=== PATIENT | female | born 1990 | race Caucasian/White ===

== ENCOUNTER → 2020-05-07 17:32 | Outpatient (BNVA) | payer OTHER, SELFPAY | PROVIDERS: Family Provider Nurse Practitioner; PCP Nurse Practitioner; Visit Provider Nurse Practitioner Family | DX: N39.0 Urinary tract infection, site not specified (principal); R31.9 Hematuria, unspecified | CPT/HCPCS: 81000 ==

== ENCOUNTER → 2021-01-01 14:28 | Outpatient (BNVA) | payer OTHER, SELFPAY | PROVIDERS: Family Provider Nurse Practitioner; PCP Nurse Practitioner; Visit Provider Nurse Practitioner Women's Health | DX: Z01.419 Encounter for gynecological examination (general) (routine) without abnormal findings (principal); Z13.1 Encounter for screening for diabetes mellitus | CPT/HCPCS: 83036; 83520; 84146; 84443; 88175 ==

== ENCOUNTER → 2021-02-18 07:57 | Outpatient (BNVA) | payer OTHER, SELFPAY | PROVIDERS: Family Provider Nurse Practitioner; PCP Nurse Practitioner; Visit Provider Nurse Practitioner Women's Health | DX: N92.6 Irregular menstruation, unspecified (principal) | CPT/HCPCS: 81025 ==

== ENCOUNTER → 2021-04-13 15:27 | Outpatient (BNVA) | payer OTHER, SELFPAY | PROVIDERS: Family Provider Nurse Practitioner; Visit Provider Obstetrics & Gynecology | DX: Z34.01 Encounter for supervision of normal first pregnancy, first trimester (principal) | CPT/HCPCS: 80307; 82950; 84315; 84443; 85027; 86592; 86762; 86803; 86850; 86900; 87086; 87340; 87491; 87591; 87806 ==

== ENCOUNTER → 2021-04-14 16:41 | Outpatient (BNVA) | payer OTHER, SELFPAY | PROVIDERS: Family Provider Nurse Practitioner; Visit Provider Obstetrics & Gynecology | DX: O99.019 Anemia complicating pregnancy, unspecified trimester (principal) | CPT/HCPCS: 82607; 82728; 82746; 83550 ==

== ENCOUNTER → 2021-06-03 14:52 | Outpatient (BNVA) | payer OTHER, SELFPAY | PROVIDERS: Family Provider Nurse Practitioner; Visit Provider Obstetrics & Gynecology | DX: Z34.90 Encounter for supervision of normal pregnancy, unspecified, unspecified trimester (principal) | CPT/HCPCS: 82607; 82746; 84315; 85025 ==

== ENCOUNTER → 2021-07-27 08:58 | Outpatient (BNVA) | payer OTHER, SELFPAY | PROVIDERS: Family Provider Nurse Practitioner; Visit Provider Obstetrics & Gynecology | DX: Z34.90 Encounter for supervision of normal pregnancy, unspecified, unspecified trimester (principal) | CPT/HCPCS: 82950; 84315; 85027; 86850 ==

== ENCOUNTER → 2021-09-21 10:19 | Outpatient (BNVA) | payer OTHER, SELFPAY | PROVIDERS: Family Provider Nurse Practitioner; Visit Provider Obstetrics & Gynecology | DX: Z34.90 Encounter for supervision of normal pregnancy, unspecified, unspecified trimester (principal) | CPT/HCPCS: 84315; 85025; 87081 ==

== ENCOUNTER 2021-10-12 19:16 | Inpatient (IN) | payer OTHER, SELFPAY ==
--- NOTE | 2021-09-25 10:38 | ANES.PREANE2 ---
Pre-Anesthetic Assessment Height/Weight: Height 1.57 m epidural Familial anesthetic complications: none Social No alcohol and No tobacco Exam alert, oriented x 3, clear to auscultation bilaterally and regular rate & rhythm Airway Mallampati: Class II Dentition: full Pulmonary None reported CV/HEM None reported None reported Hepatic None reported GI Gastroesophageal Reflux Disease Metabolic None reported Musc/skel None reported Neuropsych None reported Anesthetic Plan ASA status: 2 Anesthesia: Regional (specify below) Risk of > 500 ml blood loss (7ml/kg in children): Yes, adequate IV access and fluids planned Medications/Allergies Home Medications Medication Instructions Recorded Confirmed Last Taken Type vitamins no.147-iron 1 tab PO DAILY 02/18/21 09/21/21 Unknown History gluconate 13 mg-folic acid 1 mg tablet omeprazole 20 mg capsule,delayed 20 mg PO DAILY 04/13/21 09/21/21 Unknown History release ferrous sulfate 324 mg (65 mg 324 mg PO DAILY 06/30/21 09/21/21 Unknown History iron) tablet,delayed release docusate sodium 100 mg capsule 200 mg PO DAILY cap 07/27/21 09/21/21 Unknown History (Colace) breast pump (Pump In Style #1 ea 08/12/21 09/21/21 Unknown Rx Advanced) Allergies Allergy/AdvReac Type Severity Reaction Status Date / Time No Known Allergies Allergy Verified 09/21/21 10:16 [facility] Anesthesia Medical History GERD (gastroesophageal reflux disease) Has had symptoms since 2018 and is on medication. No pertinent past medical history Denies diabetes, asthma, hypertension, seizures, DVT/PE PCP: None Surgical History No pertinent past surgical history Family History Mother Diabetes Type 2 DM-- at age 59 Thyroid disease Father Diabetes Type 1 DM Grandfather Hyperlipidemia maternal Grandmother Hyperlipidemia maternal Stroke maternal Denies family history of Colon cancer Ovarian cancer Heart disease Breast cancer Hypertension Uterine cancer Data Anesthesia Cardiac Studies: No Data to Display
[2021-10-12] VITALS (12 sets, daily range): BP systolic 97–142; BP diastolic 53–75; PULSE 68–90; RESP 16; BMI 44.4
[2021-10-12] MEDS: lactated ringers 1,000 ML 999 ML IV (20:00)
[2021-10-12 20:02] LABS: Basophils % 0.2 %; Eosinophils # 0.2 10^3/uL (0.0-0.8); Eosinophils % 1.3 %; Hematocrit 34.2 % (37.0-47.0); Hemoglobin 11.1 g/dL (11.5-15.3); Lymphocytes # 2.6 10^3/uL (0.8-4.8); Lymphocytes % 22.4 %; Mean Corpuscular HGB Conc 32.5 g/dL (30.0-36.0); Mean Corpuscular Hemoglobin 32.2 pg (28.0-34.0); Mean Corpuscular Volume 99.1 fl (81-99); Mean Platelet Volume 11.6 fL (7.4-10.4); Monocytes # 0.8 10^3/uL (0.2-0.9); Monocytes % 6.5 %; Neutrophils # 7.95 10^3/uL (1.8-7.7); Neutrophils % 69.2 %; Nucleated Red Blood Cells % 0 %; Platelet Count 220 10^3/cmm (130-400); Red Blood Count 3.45 10^6/uL (4.1-5.3); Red Cell Distribution Width 13.1 % (12.1-15.1); White Blood Count 11.5 10^3/uL (4.0-10.0)
[2021-10-12] MEDS: miSOPROStol 100 mcg tablet 25 MCG VAGINAL (22:01)
[2021-10-13] VITALS (78 sets, daily range): BP systolic 85–176; BP diastolic 49–123; PULSE 56–103; TEMP 36.9; O2SAT 91–99
[2021-10-13] MEDS: oxytocin 30 UNIT/500 ML BAG IV (04:53)
[2021-10-13] MEDS: lactated ringers 1,000 ML 125 ML IV (06:05)
--- NOTE | 2021-10-13 08:21 | P.HPUD_ITS ---
Labor & Delivery H&P Update Date of Procedure: October 13, 2021 Date H&P Performed: 10/12/21 H&P update information: I have reviewed H&P completed within last 30 days, I have examined patient prior to procedure, Changes to prior documentation as noted here and H&P is in [facility] EMR on date indicated Changes to previous documentation: Cervix is 1.5 cm, 100%-3 station. AROM perdormed---clear fluid. Admission Diagnosis:
[2021-10-13] MEDS: lactated ringers 1,000 ML 999 ML IV ×2 (09:00→11:31)
--- NOTE | 2021-10-13 09:23 | ANES.PAUD2 ---
Pre-Anesthetic Update Pre-Anesthetic Assessment: Date of Surgery/Procedure: 10/13/21 Any changes to Pre-Anesthetic Assessment?: No Labs Last 48hrs: Short CBC 10/12/21 Range/Units 19:45 WBC 11.5 H (4.0-10.0) 10^3/ uL Hgb 11.1 L (11.5-15.3) g/dL Hct 34.2 L (37.0-47.0) % MCV 99.1 H (81-99) fl Plt Count 220 (130-400) 10^3/c mm Neut % (Auto) 69.2 % Neut # (Auto) 7.95 H (1.8-7.7) 10^3/u L Vitals: Pulse Rate 74 10/13/21 09:11 Pulse Rhythm 10/13/21 08:00 Pulse Strength 3+ Normal 10/13/21 08:00 Respiratory Rate 16 10/12/21 22:05 Respiratory Effort Non-Labored 10/12/21 19:54 Respiratory Depth Normal 10/12/21 19:54 Respiratory Patter n 10/12/21 19:54 Blood Pressure 127/86 10/13/21 09:11 Oxygen Delivery Me thod 10/12/21 19:54 Exam: Pre-Anes Outpt Exam: alert, oriented x 3, clear to auscultation bilaterally and regular rate & rhythm Cardiac Studies: No Data to Display
--- NOTE | 2021-10-13 10:33 | ANES.PROC ---
Anesthesia Procedures Procedure/Date: 10/13/21 Epidural: Time Out Performed: Yes Consents Signed: Procedure Consent Consent: from patient Lumbar Level: L4-L5 Epidural position: sitting Epidural procedure: sterile prep of area, 1% lidocaine to numb the area, 18 g needle, neg for paresthesia, test dose given, 1.5% xylocaine 1:200k epi, 0.2% Ropivacaine bolus ml, placed PCEA, no systemic response, sterile dressing applied and 0.2% Ropiavacaine @ mls/hr (13) Additional Comments: Cap, mask donned by staff in room. Patient sat up. Patient prepped and draped in usual sterile fashion with Chlorprep. 1% lidocaine skin wheel. Tuohy inserted with stylet. Ligament engaged. Using KAI w/ saline technique epidural space found, catheter threaded. Negative aspiration. Test dose 1.5% lidocaine with epinephrine 1:200,000 total 3 cc. No response. Sterile dressing. Infusion started. Loss at? 7 , catheter at 14 . Tolerated well, 1 attempted, good block.?
[2021-10-13] MEDS: dextrose 5%-lactated ringers 1,000 ML 125 ML IV (15:41)
[2021-10-13] MEDS: ondansetron 2 mg/ML SDV 2 mL 4 MG IVP (21:11)
[2021-10-14] VITALS (15 sets, daily range): BP systolic 106–162; BP diastolic 59–98; PULSE 85–124; RESP 16; TEMP 36.5–37.9; O2SAT 96–97
[2021-10-14] MEDS: dextrose 5%-lactated ringers 1,000 ML 125 ML IV (00:07)
[2021-10-14] MEDS: miSOPROStol 200 mcg Tablet 800 MCG PR (00:08)
--- NOTE | 2021-10-14 00:18 | PM.DELIVERY ---
Delivery Note: Date of delivery: October 14, 2021 Pre-delivery diagnoses: iup@ 39w4d, induction of labor Post-delivery diagnoses: same- delivered Procedure: Delivering Physician: Juancarlos Estimated blood loss (mL): 100 Findings: term male in the KAREL presentation Pre-Delivery Course: The patient was admitted for induction of labor. She was started on pitocin. she had complete cervical dilation and began pushing. Delivery: The patient had complete cervical dilation and began to push. As the baby was , there was a deceleration to the 60's. The contraction stopped, but I had the patient continue to push until the head delivered in the KAREL position over an intact perineum under epidural anesthesia. The nose and mouth were bulb suctioned. The shoulders and body delivered atraumatically. The baby was placed onto the mother's abdomen. The baby needed some assistance with transition. The cord was clamped and cut. The baby was taken to the warmer for resuscitation. Cord blood was obtained. The placenta delivered spontaneously. It was inspected and found to be intact. The patient had some uterine atony after delivery. 800 mcg of cytotec was given rectally and a dose of TXA was given IV. Inspection of the perineum revealed no laceration and no repair was required. Estimated blood loss 100 mL. Apgars on baby were 7 at 1 minute and 9 at 5 minutes. Weight of baby is 7 pounds 13 ounces. Mother and baby were stable post delivery. History History History 1 Term 0 Miscarriages/Ectopic 0 0 Living Children Coding Level of Care Code Acute Career Development Counselor for g Jacobo
[2021-10-14] MEDS: benzocaine-menthol 78 gm Canister 1 SPRAY TOPICAL (01:30)
[2021-10-14] MEDS: lanolin oint 7 gm 1 APPLIC TOPICAL (01:30)
[2021-10-14] MEDS: ibuprofen 800 mg tablet PO ×3 (10:31→22:37)
[2021-10-14] MEDS: prenatal vitamin Capsule 1 CAP PO (10:31)
[2021-10-14] MEDS: docusate sodium 100 mg Capsule PO ×2 (10:32→16:43)
[2021-10-14 15:14] LABS: Hematocrit 27.4 % (37.0-47.0); Mean Corpuscular HGB Conc 32.8 g/dL (30.0-36.0); Mean Corpuscular Hemoglobin 31.8 pg (28.0-34.0); Mean Corpuscular Volume 96.8 fl (81-99); Mean Platelet Volume 11.7 fL (7.4-10.4); Platelet Count 184 10^3/cmm (130-400); Red Blood Count 2.83 10^6/uL (4.1-5.3); Red Cell Distribution Width 13.2 % (12.1-15.1); White Blood Count 16.2 10^3/uL (4.0-10.0)
--- NOTE | 2021-10-14 15:55 | P.PN_ITS ---
Vitals/I&O/Wt Last Vital Signs Temp 97.7 F 10/14/21 10:35 Pulse 105 H 10/14/21 10:35 Resp 16 10/14/21 10:35 BP 130/80 10/14/21 10:35 Pulse Ox 97 10/14/21 05:45 10/14/21 10/14/21 10/14/21 06:59 14:59 22:59 Intake Total 1602.083 / 4967.650 Output Total 700 / 1700 Balance 902.083 / 3267.650 Weight last 48 hrs Weight 243 lb Physical Exam Narrative: The patient is doing well this morning. No concerns Const: COMMON NORMALS: patient oriented x3, no limitations, healthy appearing, alert and well nourished GENERAL APPEARANCE: cooperative, comfortable, well kempt and well developed ORIENTATION/CONSCIOUSNESS: Yes awake, Yes oriented to person, Yes oriented to place and Yes oriented to time Resp: COMMON NORMALS: normal respiratory effort EFFORT & INSPECTION: Yes able to speak in complete sentences GI: COMMON NORMALS: Soft to palpation and non-tender PALPATION: Yes Soft to palpation Extremity: COMMON NORMALS: no calf tenderness Neuro: COMMON NORMALS: patient oriented x3 SENSORIUM/ORIENTATION: Yes alert, Yes oriented to person, Yes oriented to place and Yes oriented to time Psych: APPEARANCE: Yes well kempt Urinary Catheter Management: Aldridge: Cath Placed During This Visit: yes, but has since been removed by the nurse Reason for Continuing Indwelling Catheter: Decision to DC Catheter Urinary Catheter Date of Insertion: 10/13/21 Urinary Catheter Time of Insertion: 10:50 Date Urinary Catheter Removed: 10/13/21 Time Urinary Catheter Discontinued: 21:45 Data : 10/14/21 14:55 Attestations Medical Necessity Statement*: The patient had a vaginal delivery. She will be here two midnights Coding Level of Care Code Acute Assisted Living Coordinator for Juan Centeno
[2021-10-15 04:30] VITALS: BP 123/71; PULSE 75; O2SAT 96
--- NOTE | 2021-10-15 09:10 | P.DS_ITS ---
Discharge Providers BOX SEALING INSPECTOR Date of Admission: 10/13/21 10:11 Date of Discharge: 10/15/21 Attending Provider at Admission: Antionette Bauer MD Attending Provider at Discharge: Asa Bright MD Primary BOX SEALING INSPECTOR: Matthew Colvin MD Reason for Visit Reason for Visit: Induction Hospital Course Hospital Course 30Y/o female G 1 P0 with IUP at 39+3 weeks came to L&D for elective induction. She had an uneventful care, with risk factors of anemia during , obesity in , and tobacco use during . She had an adequate progression of labor and had a spontaneous vaginal delivery of viable term male 7/9 with weight 3530 gms. Her recovery observation was uneventful. She is Rh- and Rh-. Information Peripartum Data: Infant Delivery Method: Vaginal Physical Exam Narrative: GA; alert and oriented x 3 HEENT: normal Breasts: engorged Nipples - skin intact Lungs; clear to auscultation Heart: regular rhythm, no murmurs. Abd: Appropriately tender. BS+. Uterine fundus below umbilicus. No Fundal Tenderness. Perineum: normal lochia. Extremities: no edema, no cyanosis, no tenderness. Urinary Catheter Management: Aldridge: Cath Placed During This Visit: yes, but has since been removed by the nurse Reason for Continuing Indwelling Catheter: Decision to DC Catheter Urinary Catheter Date of Insertion: 10/13/21 Urinary Catheter Time of Insertion: 10:50 Date Urinary Catheter Removed: 10/13/21 Time Urinary Catheter Discontinued: 21:45 History History History 1 Term 0 Miscarriages/Ectopic 0 0 Living Children Discharge Data Studies Completed and Pending Laboratory Results WBC 16.2 10^3/uL (4.0-10.0) H 10/14/21 14:55 RBC 2.83 10^6/uL (4.1-5.3) L 10/14/21 14:55 Hgb 9.0 g/dL (11.5-15.3) L 10/14/21 14:55 Hct 27.4 % (37.0-47.0) L 10/14/21 14:55 MCV 96.8 fl (81-99) 10/14/21 14:55 MCH 31.8 pg (28.0-34.0) 10/14/21 14:55 MCHC 32.8 g/dL (30.0-36.0) 10/14/21 14:55 RDW 13.2 % (12.1-15.1) 10/14/21 14:55 Plt Count 184 10^3/cmm (130-400) 10/14/21 14:55 MPV 11.7 fL (7.4-10.4) H 10/14/21 14:55 Neut % (Auto) 69.2 % 10/12/21 19:45 Lymph % (Auto) 22.4 % 10/12/21 19:45 Dolores % (Auto) 6.5 % 10/12/21 19:45 Eos % (Auto) 1.3 % 10/12/21 19:45 Baso % (Auto) 0.2 % 10/12/21 19:45 Neut # (Auto) 7.95 10^3/uL (1.8-7.7) H 10/12/21 19:45 Lymph # (Auto) 2.6 10^3/uL (0.8-4.8) 10/12/21 19:45 Dolores # (Auto) 0.8 10^3/uL (0.2-0.9) 10/12/21 19:45 Eos # (Auto) 0.2 10^3/uL (0.0-0.8) 10/12/21 19:45 Baso # (Auto) 0.0 10^3/uL (0.0-0.1) 10/12/21 19:45 Nucleated RBC % (auto) 0 % 10/12/21 19:45 Nucleated RBCs # 0.0 /100WBC 10/12/21 19:45 Vitals Last Vital Signs Temp 97.9 F 10/14/21 22:00 Pulse 75 10/15/21 04:30 Resp 16 10/14/21 22:00 BP 123/71 10/15/21 04:30 Pulse Ox 96 10/15/21 04:30 Discharge Plan Discharge Patient Disposition: Home Condition: Stable Prescriptions: New acetaminophen 325 mg capsule 325 mg PO Q4H PRN (Reason: fever or post pain) Qty: 60 0RF ibuprofen 800 mg tablet 800 mg PO TID PRN (Reason: pain) Qty: 60 0RF Continued ferrous sulfate 324 mg (65 mg iron) tablet,delayed release (DR/EC) 324 mg PO DAILY 0RF (DME) breast pump [Pump In Style Advanced] Device See Rx Instructions .MEDSUPPLY Qty: 1 0RF Rx Instructions: As directed 147-iron gluc-folic 13 mg iron- 1 mg tablet 1 tab PO DAILY 0RF omeprazole 20 mg capsule,delayed release(DR/EC) 20 mg PO DAILY 0RF docusate sodium [Colace] 100 mg capsule 200 mg PO DAILY 0RF Discharge Orders: Discharge Order (Routine); Ordered 10/15/21 Ordered By: Asa Bright Referrals: Matthew Colvin MD [Physician] - 6 Weeks Discharge Diet: Usual diet Discharge Activity: Limit activity as instructed Patient Instructions: Depression (DC), Bleeding (DC), Preeclampsia and Eclampsia After Delivery (GEN), OB Discharge Report, OB Food/Drug Interaction Guide, OB Care at Home, Opioid Safety, OB Postp artum Home Care, OB Vaginal Deliveries - [facility], Abnormal Bleeding Activity Restrictions/Additional Instructions: 1. Please call [facility] clinic on next working day to make your post appointment in 6 weeks. 2. Please stay home until you come back to the clinic on first post-operative check up. 3. Please follow instructions on your medications CAREFULLY. 4. If you have abdominal incision, do not cover it unless dressing is necessary because of drainage. OK to shower, but avoid bath. Leave steri-strips until they fall off. If they are still on one week after surgery, you may remove them. 5. If you had vaginal surgery or vaginal repair, Dr. Bright may instruct you to take SITZ bath. 6. Yellow, blood tinged odorous vaginal discharge is usually normal after hysterectomy or vaginal surgeries. 7. No sexual intercourse, tampons, or douches until you are completely released from the post-operative care. 8. Avoid constipation by eating right and maybe using some Metamucil or Milk of Magnesia. 9. All prescription refills are given during the working hours. Please do no wait till it runs out. Call the clinic at [phone] before your medication runs out. The clinic will get in touch with your doctor to prescribe medications if necessary. 10. Please remain within 40 mile radius from our hospital because emergencies do happen now and then during the post-operative period. 11. If you have stairs at home, take one step at a time slowly and minimize the number of trips. It helps to stay in one floor for the next few days. No lifting except what you can lift by one hand until you are released from the post-operative care. 12. Driving is discouraged until you are well healed. It may be 3-4 weeks b efore you feel strong enough to drive. You should be able to turn and look through the rear window without pain and you should be able to push the brake pedal very hard without pain before you drive. No fast rules, but SAFETY should be your primary concern. DO NOT drive if you are on sedating medications such as narcotics. 13. Call the clinic (during working hours) to make urgent appointment or go to the Emergency room, if any of the following occurs: i. Vaginal bleeding becomes heavy, more than a period. ii. Incision becomes red and sore, or drains pus. iii. Your temperature is over 100.4 or you have chill. iv. IV site becomes red and swollen (a little ``knot?? is usually OK) v. Persistent nausea and vomiting vi. Persistent constipation or diarrhea vii. Rash or allergic reaction to medications. Discharge Attestations BOX SEALING INSPECTOR Time Spent in Discharge Care*: greater than 30 min Coding Level of Care Code Acute Clamshell Operator for Juan Centeno
[2021-10-15] MEDS: ibuprofen 800 mg tablet PO (09:48)
[2021-10-15] MEDS: docusate sodium 100 mg Capsule PO (09:48)
[2021-10-15] MEDS: prenatal vitamin Capsule 1 CAP PO (09:48)
[2021-10-15 11:31] VITALS: BP 102/69; PULSE 98; RESP 15; TEMP 36.8; O2SAT 98
--- NOTE | 2021-10-15 14:58 | ANE.PACU2 ---
Inpatient post-anesthesia follow up: Airway intact: Yes Vital signs: Temperature 98.2 F Pulse Rate 98 Respiratory Rate 15 Blood Pressure 102/69 Pulse Oximetry 98 Oxygen Delivery Me thod Room Air Oxygen Flow Rate Fraction of Inspir ed Oxygen Hydration adequate: Yes Nausea and vomiting: No Pain level: 1 Mental status: Baseline Additional Comments: EMR review
== END 2021-10-15 11:00 | disposition home or self-care (01) | DRG 806 ==
PROVIDERS: Admitting Provider Obstetrics & Gynecology; Visit Provider Obstetrics & Gynecology
DX: O99.214 Obesity complicating childbirth (principal); O36.0930 Maternal care for other rhesus isoimmunization, third trimester, not applicable or unspecified; Z37.0 Single live birth; O99.02 Anemia complicating childbirth; D64.9 Anemia, unspecified; O76 Abnormality in fetal heart rate and rhythm complicating labor and delivery; O99.334 Smoking (tobacco) complicating childbirth; F17.290 Nicotine dependence, other tobacco product, uncomplicated; Z3A.39 39 weeks gestation of pregnancy
CPT/HCPCS: 36415; 51702; 59025; 59409; 84315; 85025; 85027; G0378; G0379; J2405; J2795

== ENCOUNTER 2022-11-03 11:56 | Emergency (ER) | payer OTHER, SELFPAY ==
[2022-11-03 12:01] VITALS: BP 130/78; PULSE 74; RESP 18; TEMP 36.7; O2SAT 99
--- NOTE | 2022-11-03 12:16 | ED_ITS ---
HPI - General Adult General: Chief complaint: General Medical Stated complaint: Needle stick Time Seen by Provider: 11/03/22 12:06 Source: patient Mode of arrival: ambulatory Limitations: no limitations History of Present Illness: Patient is a 31-year-old female/[employer] employee here for a Worker's Comp. injury. Patient states she was throwing a bottle away in the sharps container when she felt like she possibly got pinched by the lid but then questioned that maybe she got poked by an exposed needle. Injury happened to the palmar aspect of her left hand. She states she did initially noticed a small amount of bleeding that has subsided. Tetanus up-to-date. Patient has a completed hepatitis B series. Onset (ago): hour(s) Location: left and upper extremity Associated symptoms: Reports no associated symptoms Treatments prior to arrival: other (hand washing) Review of Systems General: Reports: 10 or more systems reviewed and unremarkable except in HPI and below PFSH ED PFSH: Medical History GERD (gastroesophageal reflux disease) Has had symptoms since 2018 and is on medication. No pertinent past medical history Denies diabetes, asthma, hypertension, seizures, DVT/PE PCP: None Surgical History No pertinent past surgical history Family History Mother Diabetes Type 2 DM-- at age 59 Thyroid disease Father Diabetes Type 1 DM Grandfather Hyperlipidemia maternal Grandmother Hyperlipidemia maternal Stroke maternal Denies family history of Colon cancer Ovarian cancer Heart disease Breast cancer Hypertension Uterine cancer Social History Substance/Drug Use: never Physical Exam Const: COMMON NORMALS: no acute distress, no limitations, alert and well nourished Extremity: COMMON NORMALS: normal to inspection GENERAL: Yes normal exam except as noted Neuro: SENSORIUM/ORIENTATION: Yes alert Skin: NARRATIVE SKIN EXAM: no visualized wounds noted Course Vital Signs: Vital signs: Vital Signs Temperature 98.0 F 11/03/22 12:01 Pulse Rate 74 11/03/22 12:01 Respiratory Rate 18 11/03/22 12:01 Blood Pressure 130/78 11/03/22 12:01 Pulse Oximetry 99 11/03/22 12:01 Oxygen Delivery Me thod Room Air 11/03/22 12:01 MDM - General Adult Medical Decision Making Patient will be treated as a potential needlestick exposure as this certainly is possible given the history. Her tetanus is up-to-date. She has a completed hepatitis B vaccination series. Discussed how there is no PEP for hepatitis C. Did discuss the options for PEP for HIV however she declines. She will have employee exposure labs drawn prior to discharge and will follow up with workers comp. Discharge Plan Discharge Patient Disposition: Home Clinical Impression: Accidental needlestick injury with exposure to body fluid Condition: Stable Prescriptions: No Action 147-iron gluc-folic 13 mg iron- 1 mg tablet 1 tab PO DAILY Discharge Orders: Discharge ED (Routine); Ordered 11/03/22 Ordered By: Ursula Patterson Activity Restrictions/Additional Instructions: Please follow-up with Worker's Comp. as directed. Coding Level of Care Code ED Watershed Coordinator for Juan Centeno
[2022-11-03 13:31] LABS: HIV 1 & 2 Antibody Non-Reactive (Non-Reactiv); HIV 1 & 2 Antigen Non-Reactive (Non-Reactiv)
[2022-11-03 13:33] LABS: Hepatitis B Surface AB 25.2 (11.5-1000); Hepatitis B Surface Antigen Non-Reactive (Nonreactive); Hepatitis C Virus Antibody Non-Reactive (Nonreactive)
== END 2022-11-03 12:53 | disposition home or self-care (01) ==
PROVIDERS: Emergency Provider Physician Assistant
DX: Z77.21 Contact with and (suspected) exposure to potentially hazardous body fluids (principal); W46.0XXA Contact with hypodermic needle, initial encounter; Y99.0 Civilian activity done for income or pay
CPT/HCPCS: 36415; 86706; 86803; 87340; 87806; 99283

== ENCOUNTER → 2022-11-05 13:00 | Outpatient (BNVA) | payer OTHER, SELFPAY | PROVIDERS: Visit Provider Nurse Practitioner Women's Health | DX: Z32.00 Encounter for pregnancy test, result unknown (principal) | CPT/HCPCS: 84702 ==

== ENCOUNTER → 2022-12-01 11:55 | Outpatient (BNVA) | payer OTHER, SELFPAY | PROVIDERS: Visit Provider Nurse Practitioner Women's Health | DX: Z34.90 Encounter for supervision of normal pregnancy, unspecified, unspecified trimester (principal) | CPT/HCPCS: 76801 ==

== ENCOUNTER → 2022-12-06 13:18 | Outpatient (BNVA) | payer OTHER, SELFPAY | PROVIDERS: Visit Provider Obstetrics & Gynecology | DX: Z34.80 Encounter for supervision of other normal pregnancy, unspecified trimester (principal) | CPT/HCPCS: 76801; 80307; 83036; 84315; 85027; 86592; 86762; 86850; 86900; 87086 ==

== ENCOUNTER → 2022-12-20 09:43 | Outpatient (BNVA) | payer OTHER, SELFPAY | PROVIDERS: Visit Provider Obstetrics & Gynecology | DX: Z34.90 Encounter for supervision of normal pregnancy, unspecified, unspecified trimester (principal); Z34.80 Encounter for supervision of other normal pregnancy, unspecified trimester; O99.210 Obesity complicating pregnancy, unspecified trimester | CPT/HCPCS: 82950; 84315; 87491; 87591 ==

== ENCOUNTER → 2023-01-13 08:35 | Outpatient (BNVA) | payer OTHER, SELFPAY | PROVIDERS: Visit Provider Nurse Practitioner Women's Health | DX: O99.810 Abnormal glucose complicating pregnancy (principal); Z3A.00 Weeks of gestation of pregnancy not specified | CPT/HCPCS: 82951; 82952 ==

== ENCOUNTER → 2023-02-09 14:18 | Outpatient (BNVA) | payer OTHER, SELFPAY | PROVIDERS: Visit Provider Nurse Practitioner Women's Health | DX: O36.60X0 Maternal care for excessive fetal growth, unspecified trimester, not applicable or unspecified (principal); Z3A.20 20 weeks gestation of pregnancy | CPT/HCPCS: 76805 ==

== ENCOUNTER → 2023-03-09 07:55 | Outpatient (BNVA) | payer OTHER, SELFPAY | PROVIDERS: Visit Provider Nurse Practitioner Women's Health | DX: Z34.80 Encounter for supervision of other normal pregnancy, unspecified trimester (principal) | CPT/HCPCS: 82951; 82952 ==

== ENCOUNTER → 2023-03-10 08:45 | Outpatient (BNVA) | payer OTHER, SELFPAY | PROVIDERS: Visit Provider Obstetrics & Gynecology | DX: O36.62X0 Maternal care for excessive fetal growth, second trimester, not applicable or unspecified (principal); Z3A.25 25 weeks gestation of pregnancy | CPT/HCPCS: 76816; 84315 ==

== ENCOUNTER → 2023-04-07 08:41 | Outpatient (BNVA) | payer OTHER, SELFPAY | PROVIDERS: Visit Provider Obstetrics & Gynecology | DX: Z34.80 Encounter for supervision of other normal pregnancy, unspecified trimester (principal) | CPT/HCPCS: 76816; 81000; 85025; 86850 ==

== ENCOUNTER → 2023-05-05 08:39 | Outpatient (BNVA) | payer OTHER, SELFPAY | PROVIDERS: Visit Provider Obstetrics & Gynecology | DX: Z34.80 Encounter for supervision of other normal pregnancy, unspecified trimester (principal) | CPT/HCPCS: 76816; 84315 ==

== ENCOUNTER → 2023-05-19 09:46 | Outpatient (BNVA) | payer OTHER, SELFPAY | PROVIDERS: Visit Provider Nurse Practitioner Women's Health | DX: Z34.80 Encounter for supervision of other normal pregnancy, unspecified trimester (principal) | CPT/HCPCS: 84315; 85025 ==

== ENCOUNTER 2023-05-23 08:12 | Outpatient (CLI) | payer OTHER, SELFPAY ==
[2023-05-23] VITALS (11 sets, daily range): BP systolic 116–139; BP diastolic 61–81; PULSE 83–106; RESP 17; BMI 45.1
[2023-05-23 08:47] LABS: Add Urine Culture? No; Bacteria Urine 2+ /hpf; Bilirubin Urine 1+ (Negative); Blood Urine Neg (Negative); Glucose Urine UA Norm (Normal); Ketones Urine 2+ (Negative); Leukocyte Esterase Urine Trace (Negative); Mucus Urine 2+ /hpf; Nitrate Urine Negative (Negative); Protein Urine 1+ (Negative); RBC Urine 0-4 /hpf (0-2); Specific Gravity, Urine 1.025 (1.005-1.030); Squamous Epithelial Cell Urine 15-25 /hpf (0-5); Urine Appearance Cloudy (CLEAR); Urine Color Yellow (Yellow); Urobilinogen Urine Neg (Negative); pH Urine 5 (5-7)
[2023-05-23] MEDS: promethazine 25 mg/mL SDV 1 mL IM (09:10)
[2023-05-23] MEDS: lactated ringers 1,000 ML 999 ML IV ×2 (09:11→10:08)
[2023-05-23] MEDS: ondansetron 2 mg/ML SDV 2 mL 4 MG IVP (10:08)
[2023-05-23] MEDS: NIFEdipine 10 mg Capsule 30 MG PO (10:35)
[2023-05-23 10:57] LABS: Basophils % 0.1 %; Eosinophils % 0.2 %; Hematocrit 37.4 % (36-47); Lymphocytes # 2.3 10^3/uL (0.8-4.8); Lymphocytes % 14.6 %; Mean Corpuscular HGB Conc 32.9 g/dL (30-55); Mean Corpuscular Hemoglobin 32.1 pg (27-33); Mean Corpuscular Volume 97.7 fl (85-98); Mean Platelet Volume 11.1 fL (7.4-10.4); Monocytes # 0.7 10^3/uL (0.2-0.9); Monocytes % 4.2 %; Neutrophils # 12.83 10^3/uL (1.8-7.7); Neutrophils % 80.3 %; Nucleated Red Blood Cells % 0 %; Platelet Count 197 10^3/cmm (157-399); Red Blood Count 3.83 10^6/uL (3.85-5.65); Red Cell Distribution Width 13.3 % (12.1-15.1); White Blood Count 15.97 10^3/uL (3.29-11.43)
[2023-05-23 11:20] LABS: Alanine Aminotransferase 10 U/L (0-33); Albumin Level 2.9 g/dL (3.5-5.2); Alkaline Phosphatase 85 U/L (35-105); Blood Urea Nitrogen 4 mg/dL (6-20); Calcium 8.2 mg/dL (8.5-10.5); Carbon Dioxide 21 mmol/L (22-29); Chloride 102 mmol/L (98-107); Globulin 3.1 g/dL (1.3-4.6); Glomerular Filtration Rate 182.7 mL/min (90-130); Glucose 87 mg/dL (65-115); Osmolality Calculated 278 mOsm/kg (285-295); Sodium 136 mmol/L (136-145); Total Bilirubin 0.2 mg/dL (0.15-1.2); Uric Acid 5.1 mg/dL (2.4-5.7)
[2023-05-23 11:26] LABS: Anion Gap 16.4 (5-19); Aspartate Amino Transferase 19 U/L (0-32); Potassium 3.4 mmol/L (3.5-5.1)
[2023-05-23 11:28] LABS: Slide Review Slide Review Perform
[2023-05-23 11:33] LABS: Urine Creatinine 286 mg/dL (28-217)
[2023-05-23 11:34] LABS: UPRO/UCREAT Ratio 0.22 mg/mg CR; Urine Protein Random 62 mg/dL
== END 2023-05-23 11:50 | disposition home or self-care (01) ==
LOC: OPOB 08:13 → OBGYN 08:45
PROVIDERS: Visit Provider Obstetrics & Gynecology
DX: O21.9 Vomiting of pregnancy, unspecified (principal); Z3A.00 Weeks of gestation of pregnancy not specified
CPT/HCPCS: 36415; 59025; 80053; 81001; 82570; 84156; 84550; 85025; 96372; 96374; 99211; J2405; J2550; J7120

== ENCOUNTER → 2023-06-02 07:49 | Outpatient (BNVA) | payer OTHER, SELFPAY | PROVIDERS: Visit Provider Obstetrics & Gynecology | DX: Z34.80 Encounter for supervision of other normal pregnancy, unspecified trimester (principal) | CPT/HCPCS: 76816; 84315; 87081 ==

== ENCOUNTER → 2023-06-09 08:35 | Outpatient (BNVA) | payer OTHER, SELFPAY | PROVIDERS: Visit Provider Obstetrics & Gynecology | DX: Z34.80 Encounter for supervision of other normal pregnancy, unspecified trimester (principal) | CPT/HCPCS: 80053; 82570; 84156; 84315; 84550; 85025 ==

== ENCOUNTER 2023-06-27 10:18 | Inpatient (IN) | payer OTHER, SELFPAY ==
[2023-06-27] VITALS (63 sets, daily range): BP systolic 104–167; BP diastolic 53–99; PULSE 80–157; RESP 16; TEMP 36.4; O2SAT 98; BMI 45.7
[2023-06-27 10:36] LABS: Basophils % 0.2 %; Eosinophils # 0.1 10^3/uL (0.0-0.8); Eosinophils % 0.8 %; Hematocrit 36.1 % (36-47); Lymphocytes # 2.4 10^3/uL (0.8-4.8); Lymphocytes % 19.5 %; Mean Corpuscular HGB Conc 33.2 g/dL (30-55); Mean Corpuscular Volume 96.3 fl (85-98); Mean Platelet Volume 11.9 fL (7.4-10.4); Monocytes # 0.9 10^3/uL (0.2-0.9); Monocytes % 7.4 %; Neutrophils # 8.88 10^3/uL (1.8-7.7); Neutrophils % 71.7 %; Nucleated Red Blood Cells % 0 %; Platelet Count 207 10^3/cmm (157-399); Red Blood Count 3.75 10^6/uL (3.85-5.65); Red Cell Distribution Width 14.1 % (12.1-15.1); White Blood Count 12.38 10^3/uL (3.29-11.43)
[2023-06-27] MEDS: ROPivacaine syringe 100 MG/50 ML SYRINGE 10 MG EPIDURAL ×3 (11:07→17:59)
--- NOTE | 2023-06-27 11:13 | P.ANESASSM_ITS ---
Pre-Anesthetic Assessment Height/Weight: Height 1.57 m Weight 113.398 kg Pulse Resp BP Pulse Ox O2 Del Method 118 H 16 147/77 98 Room Air 06/27/23 11:10 06/27/23 10:16 06/27/23 11:10 06/27/23 11:00 06/27/23 10:17 Epidural Familial anesthetic complications: None Was Beta Renard taken within 24 hours: N/A Was Clonidine taken within 24 hours: N/A Last intake: > 8 hrs Social No alcohol and No tobacco Exam alert, oriented x 3, clear to auscultation bilaterally and regular rate & rhythm Airway Mallampati: Class III Dentition: full GI Gastroesophageal Reflux Disease Metabolic Morbid Obesity Anesthetic Plan ASA status: 3 Anesthesia: Regional (specify below) Other: Epidural Risk of > 500 ml blood loss (7ml/kg in children): Yes, adequate IV access and fluids planned Medications/Allergies Home Medications Medication Instructions Recorded Confirmed Last Taken Type vitamins no.147-iron 1 tab PO DAILY 02/18/21 06/27/23 10/12/21 07:00 History gluconate 13 mg-folic acid 1 mg tablet omeprazole 20 mg capsule,delayed 20 mg PO DAILY 02/17/23 06/27/23 Unknown History release ferrous sulfate 325 mg (65 mg 325 mg PO DAILY 90 days #90 tabs 04/21/23 06/27/23 Unknown Rx iron) tablet,delayed release Allergies Allergy/AdvReac Type Severity Reaction Status Date / Time No Known Allergies Allergy Verified 06/23/23 07:53 [facility] Anesthesia Medical History GERD (gastroesophageal reflux disease) Has had symptoms since 2018 and is on medication. No pertinent past medical history Denies diabetes, asthma, hypertension, seizures, DVT/PE PCP: None Surgical History No pertinent past surgical history Family History Mother Diabetes Type 2 DM-- at age 59 Thyroid disease Father Diabetes Type 1 DM Grandfather Hyperlipidemia maternal Grandmother Hyperlipidemia maternal Stroke maternal Denies family history of Colon cancer Ovarian cancer Heart disease Breast cancer Hypertension Uterine cancer Female Reproductive History : 2 Data Anesthesia 06/27/23 10:24 Short CBC 06/27/23 Range/Units 10:24 WBC 12.38 H (3.29-11.43) 10^3/uL Hgb 12.00 (11.27-16.99) g/dL Hct 36.1 (36-47) % MCV 96.3 (85-98) fl Plt Count 207 (157-399) 10^3/cmm Neut % (Auto) 71.7 % Neut # (Auto) 8.88 H (1.8-7.7) 10^3/uL Cardiac Studies: 2 No Data to Display
--- NOTE | 2023-06-27 11:16 | ANES.PROC ---
Anesthesia Procedures Procedure/Date: 06/27/23 Epidural: Time Out Performed: Yes Consents Signed: Procedure Consent and NPO Consent Consent: requested by attending/covering physician, from patient, from other, risks and benefits reviewed, patient agrees to proceed and emergency procedure Lumbar Level: L3-L4 Epidural position: sitting Epidural procedure: sterile prep of area, 1% lidocaine to numb the area, 18 g needle, negative for paresthesia passed, neg for paresthesia, test dose given, 1.5% xylocaine 1:200k epi (5), 0.2% Ropivacaine bolus ml (5), placed PCEA, no systemic response, sterile dressing applied, L.U.D. no apparent complications and 0.2% Ropiavacaine @ mls/hr (10) Additional Comments: KAI at 6.5 cm, threaded to 12 cm. Patient reported significant improvement in subsequent contraction and onset of mild numbness in legs.
[2023-06-27] MEDS: dextrose 5%-lactated ringers 1,000 ML 125 ML IV (11:28)
--- NOTE | 2023-06-27 11:35 | PM.OBGYHP ---
Providers/Chief Complaint Admitting Physician: Ja Bean MD Primary GEOSPATIAL SYSTEMS INTEGRATOR: Asa Bright MD Chief Complaint: contraction 5 min apart HPI GEOSPATIAL SYSTEMS INTEGRATOR History of Present Illness 32 y.o. EDC June 29, 2023 At 39 w 5 d Presented to L&D with [facility] No bleeding, fluid leakage Present Details : 2 Para: 1 Labs Rubella: Immune RPR: Negative GBS: Negative Medications/Allergies Home Medications Medication Instructions Recorded Confirmed Last Taken Type vitamins no.147-iron 1 tab PO DAILY 02/18/21 06/27/23 10/12/21 07:00 History gluconate 13 mg-folic acid 1 mg tablet omeprazole 20 mg capsule,delayed 20 mg PO DAILY 02/17/23 06/27/23 Unknown History release ferrous sulfate 325 mg (65 mg 325 mg PO DAILY 90 days #90 tabs 04/21/23 06/27/23 Unknown Rx iron) tablet,delayed release Allergies Allergy/AdvReac Type Severity Reaction Status Date / Time No Known Allergies Allergy Verified 06/23/23 07:53 PFSH GEOSPATIAL SYSTEMS INTEGRATOR PFSH: Medical History GERD (gastroesophageal reflux disease) Has had symptoms since 2018 and is on medication. No pertinent past medical history Denies diabetes, asthma, hypertension, seizures, DVT/PE PCP: None Surgical History No pertinent past surgical history Family History Mother Diabetes Type 2 DM-- at age 59 Thyroid disease Father Diabetes Type 1 DM Grandfather Hyperlipidemia maternal Grandmother Hyperlipidemia maternal Stroke maternal Denies family history of Colon cancer Ovarian cancer Heart disease Breast cancer Hypertension Uterine cancer History History History 2 Term 1 0 Miscarriages/Ectopic 0 Living Children 1 Care LOUISE Calculator Estimated Delivery Date Method Current WG Current Estimate 06/29/23 LMP (Certain) 39w 6d Other Estimates 06/28/23 Ultrasound #1 40w 0d 06/21/23 Ultrasound #2 41w 0d Specific Issues/Plans OBESITY RH NEGATIVE--needs RhoGam at 28 weeks -- given on 04/07/2023 ABNORMAL GLUCOSE at 12 wks-- 3 hour GTT ; 1 level abnormal at 24 weeks; no further f/u Vitals/I&O/Wt Last Vital Signs Temp 97.5 F L 06/27/23 18:11 Pulse 104 H 06/28/23 00:26 Resp 16 06/27/23 11:07 BP 143/74 06/28/23 00:26 Pulse Ox 98 06/27/23 11:00 O2 Del Method Room Air 06/27/23 11:00 06/27/23 06/27/23 06/28/23 14:59 22:59 06:59 Intake Total 50 / 50 1054.601 / 1104.601 Output Total 450 / 450 Balance 50 / 50 604.601 / 654.601 Weight last 48 hrs Weight 250 lb Physical Exam Narrative: Weight 250 lbs; VS normal Awake, alert HEENT: normal Lungs: clear Cor: RRR Abd: nontender Cervix: 9 cm / 100 % / high station / BBOW Bedside sono: cephalic presentation Ext: no edema External monitor: heart tracing good variability, + accelerations Urinary Catheter Management: Aldridge: Cath Placed During This Visit: yes Reason for Continuing Indwelling Catheter: Other Urinary Catheter Date of Insertion: 06/27/23 Urinary Catheter Time of Insertion: 12:00 Aldridge Latex: Cath Placed During This Visit: yes, but has since been removed by the nurse Reason for Continuing Indwelling Catheter: Decision to DC Catheter Urinary Catheter Date of Insertion: 06/27/23 Urinary Catheter Time of Insertion: 19:45 Date Urinary Catheter Removed: 06/27/23 Time Urinary Catheter Discontinued: 22:05 Data 06/27/23 10:24 Results Labs OB ([facility]): Obstetrics US 06/02/23 Blood Type O Negative 06/27/23 Antibody Screen Negative 06/27/23 Hct 36.1 % (36-47) 06/27/23 Hgb 12.00 g/dL (11.27-16.99) 06/27/23 Rho(D) Type Negative 06/27/23 Plt Count 207 10^3/cmm (157-399) 06/27/23 Hep Bs Antigen Non-reactive (Nonreactive) 11/03/22 Hep Bs Antibody 25.2 (11.5-1000) 11/03/22 Hepatitis C Antibody Non-reactive (Nonreactive) 11/03/22 Rubella IgG Antibody 78.5 IU/mL (0.0-10.0) H 12/06/22 RPR Nonreactive (Nonreactive) 12/06/22 HIV 1&2 Ab & HIV 1 Ag Non-reactive (Non-Reactiv) 11/03/22 TSH 1.37 uIU/mL (0.27-4.20) 04/13/21 C.trachomatis RNA (TMA) Not detected (NOT DETECTED) 12/20/22 N.gonorrhoeae RNA (TMA) Not detected (NOT DETECTED) 12/20/22 T. vaginalis Amp RNA Not detected (NOT DETECTED) 12/20/22 Chlamydia/GC Comment See note 12/20/22 Gest Glucose Tolerance mg/dL 03/09/23 Hemoglobin A1c 5.4 % (4.0-6.0) 12/06/22 Uric Acid 4.3 mg/dL (2.4-5.7) 06/09/23 Ser , Semi-Qnt 89116.00 mIU/mL 11/05/22 HCG, Qual Positive (Negative) H 02/18/21 Urine Opiates Screen Negative ng/mL (Negative) 12/06/22 Ur Barbiturates Screen Negative ng/mL (Negative) 12/06/22 Ur Phencyclidine Scrn Negative ng/mL (Negative) 12/06/22 Ur Amphetamines Screen Negative ng/mL (Negative) 12/06/22 U Benzodiazepines Scrn Negative ng/mL (Negative) 12/06/22 Urine Cocaine Screen Negative ng/mL (Negative) 12/06/22 U Marijuana (THC) Screen Negative ng/mL (Negative) 12/06/22 Micro Urine Specimen 12/06/22 Pap Smear Interpret See note 01/01/21 Prolactin 9.33 ng/mL (4.8-23.3) 01/01/21 OB Labs GBS negative A&P Assessment and plan (1) Supervision of other normal : 39 w 5 d Active labor Fetus reassuring Plan admit Patient requests epidural Attestations Medical Necessity Statement*: patient at 39 w 5 d, with active labor Coding Level of Care Code Acute Code for Chg Fwd Diagnoses Supervision of other normal Z34.80 Time Spent (min) 30
--- NOTE | 2023-06-27 15:30 | PM.MISC ---
Miscellaneous Note Purpose of Documentation: pain Note: Called for return of R-sided discomfort after pump was paused. Bolused w/ bupivicaine 0.25% 10 cc with good effect
--- NOTE | 2023-06-27 15:30 | PC.NURSE ---
Pt reports right sided pain 8/10, left side numb. Position changed from right lateral to high fowlers per patient request. Dr. Snell to bedside to assess epidural. Pt given bolus by anesthesia provider.
[2023-06-27] MEDS: oxytocin 30 UNIT/500 ML BAG IV (17:17)
[2023-06-27] MEDS: dextrose 5%-lactated ringers 1,000 ML 120 ML IV (19:41)
--- NOTE | 2023-06-27 22:50 | PM.DELIVERY ---
Delivery Note: Date of delivery: June 27, 2023 Pre-delivery diagnoses: 39 w 5 d active labor Post-delivery diagnoses: same Procedure: vaginal delivery repair of second-degree perineal laceration Op report anesthesia: Epidural Delivering Physician: Ja Bean MD Estimated blood loss (mL): 400 Findings: , vigorous male Normal placenta and cord Cord gases and blood obtained Small second-degree perineal laceration repaired EBL: 400 cc No complications Pre-Delivery Course: patient admitted at cervix 9 cm / high station progressed with pitocin augmentation delivered vaginally without any complications Delivery: vaginal delivery Post-Delivery Status: good History History History 2 Term 1 0 Miscarriages/Ectopic 0 Living Children 1 A&P Assessment and plan (1) Vaginal delivery: care Coding Level of Care Code Acute Code for Chg Fwd Diagnoses Vaginal delivery O80 Time Spent (min) 60
[2023-06-28] VITALS (12 sets, daily range): BP systolic 105–149; BP diastolic 67–84; PULSE 78–123; RESP 16–17; TEMP 36.4–36.7; O2SAT 99
[2023-06-28] MEDS: HYDROcodone-acetaminophen 5-325 mg Tablet PO ×2 (00:39→10:04)
[2023-06-28] MEDS: benzocaine-menthol 78 gm Canister 1 SPRAY TOPICAL (00:47)
--- NOTE | 2023-06-28 01:54 | PC.NURSE ---
catheter intact, catheter partially pulled out of site before removal
[2023-06-28] MEDS: ibuprofen 800 mg tablet PO ×2 (08:50→16:03)
[2023-06-28] MEDS: docusate sodium 100 mg Capsule PO (08:50)
[2023-06-28] MEDS: prenatal vitamin Capsule 1 CAP PO (08:50)
[2023-06-28 12:00] LABS: Hematocrit 31.5 % (36-47); Mean Corpuscular HGB Conc 32.7 g/dL (30-55); Mean Corpuscular Hemoglobin 31.8 pg (27-33); Mean Corpuscular Volume 97.2 fl (85-98); Mean Platelet Volume 11.5 fL (7.4-10.4); Platelet Count 190 10^3/cmm (157-399); Red Blood Count 3.24 10^6/uL (3.85-5.65); Red Cell Distribution Width 14.1 % (12.1-15.1); White Blood Count 17.15 10^3/uL (3.29-11.43)
--- NOTE | 2023-06-28 14:04 | ANE.PACU2 ---
Inpatient post-anesthesia follow up: Airway intact: Yes Vital signs: Temperature 97.5 F Pulse Rate 101 Respiratory Rate 16 Blood Pressure 145/81 Pulse Oximetry 98 Oxygen Delivery Me thod Room Air Oxygen Flow Rate Fraction of Inspir ed Oxygen Hydration adequate: Yes Nausea and vomiting: No Pain level: 1 Mental status: Baseline Epidural Start/End: Epidural Start Date: 06/27/23 Epidural Start Time: 10:47 Epidural End Date: 06/28/23 Epidural End Time: 00:30
--- NOTE | 2023-06-28 16:56 | P.PN_ITS ---
LINUX SERVER ADMINISTRATOR Subjective 2 Subjective: Interval history: no c/o no bleeding, pain eating, voiding, ambulating well caring for without any problems Labor: Station: -4 Amniotic Membrane Status: Ruptured Monitor Mode: External Contraction Pattern: Regular Vitals/I&O/Wt Last Vital Signs Temp 98.0 F 06/28/23 16:05 Pulse 88 06/28/23 16:05 Resp 16 06/28/23 16:05 BP 149/82 06/28/23 16:05 Pulse Ox 98 06/27/23 11:00 O2 Del Method Room Air 06/28/23 16:05 06/28/23 06/28/23 06/28/23 06:59 14:59 22:59 Output Total 300 / 750 Balance -300 / 404.601 Weight last 48 hrs Weight 250 lb Physical Exam 2 Narrative: afebrile, VS normal comfortable, awake, alert Abd: soft, nontender. fundus firm Ext: no edema; nontender Urinary Catheter Management: Aldridge: Cath Placed During This Visit: yes Reason for Continuing Indwelling Catheter: Other Urinary Catheter Date of Insertion: 06/27/23 Urinary Catheter Time of Insertion: 12:00 Aldridge Latex: Cath Placed During This Visit: yes, but has since been removed by the nurse Reason for Continuing Indwelling Catheter: Decision to DC Catheter Urinary Catheter Date of Insertion: 06/27/23 Urinary Catheter Time of Insertion: 19:45 Date Urinary Catheter Removed: 06/27/23 Time Urinary Catheter Discontinued: 22:05 Data 06/28/23 11:50 A&P Assessment and plan (1) Vaginal delivery: PPD #1 doing well discharge home today instructions and precautions given call/return if fever, chills, headache, blurry vision, nausea, vomiting, abdominal pain; vaginal bleeding or discharge; shortness of breath, chest pain, leg pains or swelling; inability to void, perineal pain or swelling; feelings of depression or mood changes; thoughts of suicide or harming others; inability to care for baby. f/u in 6 weeks or PRN Attestations 2 Medical Necessity Statement*: patient s/p , plan discharge home today. Coding Level of Care Code Acute Code for Chg Fwd Diagnoses Vaginal delivery O80 Time Spent (min) 20
--- NOTE | 2023-06-28 16:59 | PM.OBGYDC ---
Discharge Providers TOOL AND DIE MANAGER Date of Admission: 06/27/23 10:18 Date of Discharge: 06/28/23 Attending Provider at Admission: Ja Bean MD Attending Provider at Discharge: Ja Bean MD Consults: none Primary TOOL AND DIE MANAGER: Asa Bright MD Diagnoses at Discharge Discharge Diagnosis (1) Vaginal delivery: Details from hospital stay: patient admitted with active labor delivered vaginally without any complications had normal course discharged home on PPD #1 Status: Acute Reason for Visit Reason for Visit: contraction 5 min apart Brief History: 32 y.o. admitted at 39 w 5 d with active labor Hospital Course Hospital Course patient admitted with active labor delivered vaginally without any complications had normal course discharged home on PPD #1 Information Peripartum Data: Delivery Method: Vaginal Laceration description: Perineal - 2nd Degree Episiotomy description: None complications: none Physical Exam Narrative: afebrile, VS normal comfortable, awake, alert Abd: soft, nontender. fundus firm Ext: no edema; nontender Urinary Catheter Management: Aldridge: Cath Placed During This Visit: yes Reason for Continuing Indwelling Catheter: Other Urinary Catheter Date of Insertion: 06/27/23 Urinary Catheter Time of Insertion: 12:00 Aldridge Latex: Cath Placed During This Visit: yes, but has since been removed by the nurse Reason for Continuing Indwelling Catheter: Decision to DC Catheter Urinary Catheter Date of Insertion: 06/27/23 Urinary Catheter Time of Insertion: 19:45 Date Urinary Catheter Removed: 06/27/23 Time Urinary Catheter Discontinued: 22:05 History History History 2 Term 1 0 Miscarriages/Ectopic 0 Living Children 1 Discharge Data Studies Completed and Pending Laboratory Results WBC 17.15 10^3/uL (3.29-11.43) H 06/28/23 11:50 RBC 3.24 10^6/uL (3.85-5.65) L 06/28/23 11:50 Hgb 10.30 g/dL (11.27-16.99) L 06/28/23 11:50 Hct 31.5 % (36-47) L 06/28/23 11:50 MCV 97.2 fl (85-98) 06/28/23 11:50 MCH 31.8 pg (27-33) 06/28/23 11:50 MCHC 32.7 g/dL (30-55) 06/28/23 11:50 RDW 14.1 % (12.1-15.1) 06/28/23 11:50 Plt Count 190 10^3/cmm (157-399) 06/28/23 11:50 MPV 11.5 fL (7.4-10.4) H 06/28/23 11:50 Neut % (Auto) 71.7 % 06/27/23 10:24 Lymph % (Auto) 19.5 % 06/27/23 10:24 [place] % (Auto) 7.4 % 06/27/23 10:24 Eos % (Auto) 0.8 % 06/27/23 10:24 Baso % (Auto) 0.2 % 06/27/23 10:24 Neut # (Auto) 8.88 10^3/uL (1.8-7.7) H 06/27/23 10:24 Lymph # (Auto) 2.4 10^3/uL (0.8-4.8) 06/27/23 10:24 [place] # (Auto) 0.9 10^3/uL (0.2-0.9) 06/27/23 10:24 Eos # (Auto) 0.1 10^3/uL (0.0-0.8) 06/27/23 10:24 Baso # (Auto) 0.0 10^3/uL (0.0-0.1) 06/27/23 10:24 Nucleated RBC % (auto) 0 % 06/27/23 10:24 Nucleated RBCs # 0.0 /100WBC 06/27/23 10:24 Blood Type O Negative 06/27/23 10:24 Rho(D) Type Negative 06/27/23 10:24 Antibody Screen Negative 06/27/23 10:24 Procedures Performed pitocin augmentation vaginal delivery repair of second-degree perineal laceration Vitals Last Vital Signs Temp 98.0 F 06/28/23 16:05 Pulse 88 06/28/23 16:05 Resp 16 06/28/23 16:05 BP 149/82 06/28/23 16:05 Pulse Ox 98 06/27/23 11:00 O2 Del Method Room Air 06/28/23 16:05 Results Labs OB ([facility]): Obstetrics US 06/02/23 Blood Type O Negative 06/27/23 Antibody Screen Negative 06/27/23 Hct 31.5 % (36-47) L 06/28/23 Hgb 10.30 g/dL (11.27-16.99) L 06/28/23 Rho(D) Type Negative 06/27/23 Plt Count 190 10^3/cmm (157-399) 06/28/23 Hep Bs Antigen Non-reactive (Nonreactive) 11/03/22 Hep Bs Antibody 25.2 (11.5-1000) 11/03/22 Hepatitis C Antibody Non-reactive (Nonreactive) 11/03/22 Rubella IgG Antibody 78.5 IU/mL (0.0-10.0) H 12/06/22 RPR Nonreactive (Nonreactive) 12/06/22 HIV 1&2 Ab & HIV 1 Ag Non-reactive (Non-Reactiv) 11/03/22 TSH 1.37 uIU/mL (0.27-4.20) 04/13/21 C.trachomatis RNA (TMA) Not detected (NOT DETECTED) 12/20/22 N.gonorrhoeae RNA (TMA) Not detected (NOT DETECTED) 12/20/22 T. vaginalis Amp RNA Not detected (NOT DETECTED) 12/20/22 Chlamydia/GC Comment See note 12/20/22 Gest Glucose Tolerance mg/dL 03/09/23 Hemoglobin A1c 5.4 % (4.0-6.0) 12/06/22 Uric Acid 4.3 mg/dL (2.4-5.7) 06/09/23 Ser , Semi-Qnt 83007.00 mIU/mL 11/05/22 HCG, Qual Positive (Negative) H 02/18/21 Urine Opiates Screen Negative ng/mL (Negative) 12/06/22 Ur Barbiturates Screen Negative ng/mL (Negative) 12/06/22 Ur Phencyclidine Scrn Negative ng/mL (Negative) 12/06/22 Ur Amphetamines Screen Negative ng/mL (Negative) 12/06/22 U Benzodiazepines Scrn Negative ng/mL (Negative) 12/06/22 Urine Cocaine Screen Negative ng/mL (Negative) 12/06/22 U Marijuana (THC) Screen Negative ng/mL (Negative) 12/06/22 Micro Urine Specimen 12/06/22 Pap Smear Interpret See note 01/01/21 Prolactin 9.33 ng/mL (4.8-23.3) 01/01/21 Discharge Plan Discharge Patient Disposition: Home Condition: Stable Prescriptions: Continued 147-iron gluc-folic 13 mg iron- 1 mg tablet 1 tab PO DAILY omeprazole 20 mg capsule,delayed release(DR/EC) 20 mg PO DAILY ferrous sulfate 325 mg (65 mg iron) tablet,delayed release (DR/EC) 325 mg PO DAILY 90 Days Qty: 90 3RF Discharge Orders: Discharge Order (Routine); Ordered 06/28/23 Ordered By: Ja Bean Referrals: Asa Bright MD [Physician] - 08/08/23 10:00 am Discharge Diet: Usual diet Discharge Activity: Increase activity as tolerated Patient Instructions: Preeclampsia and Eclampsia After Delivery (GEN), Hemorrhage (DC), OB Discharge Report, OB Food/Drug Interaction Guide, OB Care at Home, Opioid Safety, OB Home Care, Abnormal Bleeding, Depression Discharge Attestations TOOL AND DIE MANAGER Time Spent in Discharge Care*: less than 30 min Coding Level of Care Code Acute Code for Chg Fwd Diagnoses Vaginal delivery O80 Time Spent (min) 20
== END 2023-06-28 22:44 | disposition home or self-care (01) | DRG 807 ==
LOC: OPOB 10:20 → OBGYN 10:20
PROVIDERS: Admitting Provider Obstetrics & Gynecology; Visit Provider Obstetrics & Gynecology
DX: O99.62 Diseases of the digestive system complicating childbirth (principal); Z37.0 Single live birth; K21.9 Gastro-esophageal reflux disease without esophagitis; Z3A.39 39 weeks gestation of pregnancy; O70.1 Second degree perineal laceration during delivery
CPT/HCPCS: 36415; 51702; 59025; 59409; 85025; 85027; 86850; 86900; 99211; J2590; J2795; J7121

== ENCOUNTER 2024-07-17 10:49 | Outpatient (CLI) | payer SELFPAY ==
[2024-07-17 11:11] LABS: HF Add Manual Diff No
[2024-07-17 11:13] LABS: Basophils # 0.1 10^3/uL (0.0-0.1); Basophils % 0.6 %; Eosinophils # 0.2 10^3/uL (0.0-0.8); Eosinophils % 2.1 %; Hematocrit 38.6 % (36-47); Lymphocytes # 2.8 10^3/uL (0.8-4.8); Lymphocytes % 28.9 %; Mean Corpuscular HGB Conc 32.4 g/dL (30-55); Mean Corpuscular Hemoglobin 31.8 pg (27-33); Mean Corpuscular Volume 98.2 fl (85-98); Mean Platelet Volume 10.8 fL (7.4-10.4); Monocytes # 0.8 10^3/uL (0.2-0.9); Neutrophils # 5.73 10^3/uL (1.8-7.7); Nucleated Red Blood Cells % 0 %; Platelet Count 249 10^3/cmm (157-399); Red Blood Count 3.93 10^6/uL (3.85-5.65); Red Cell Distribution Width 12.6 % (12.1-15.1); White Blood Count 9.57 10^3/uL (3.29-11.43)
[2024-07-17 11:30] LABS: Estmated Average Glucose 103; Hemoglobin A1C 5.2 % (4.0-6.0)
[2024-07-17 11:48] LABS: Alanine Aminotransferase 7 U/L (0-33); Albumin Level 4.3 g/dL (3.5-5.2); Alkaline Phosphatase 68 U/L (35-105); Anion Gap 11.9 (5-19); Aspartate Amino Transferase 11 U/L (0-32); Blood Urea Nitrogen 11 mg/dL (6-20); Calcium 9.3 mg/dL (8.5-10.5); Carbon Dioxide 26 mmol/L (22-29); Chloride 104 mmol/L (98-107); Chol HDL Ratio 5.51 mg/dL (0.0-4.40); Cholesterol 215 mg/dL (0-200); Glomerular Filtration Rate 113.8 mL/min (90-130); Glucose 81 mg/dL (65-115); HDL Cholesterol 39 mg/dL (60-100); LDL Cholesterol Calculated 159 mg/dL (50-129); LDL HDL Ratio 4.08 RATIO (0.00-3.22); Osmolality Calculated 284 mOsm/kg (285-295); Potassium 3.9 mmol/L (3.5-5.1); Sodium 138 mmol/L (136-145); Thyroid Stimulating Hormone 4.56 uIU/mL (0.27-4.20); Total Bilirubin 0.2 mg/dL (0.15-1.2); Total Protein 7.3 g/dL (6.6-8.7); Triglycerides 87 mg/dL (0-150)
== END 2024-07-17 10:50 | disposition home or self-care (01) ==
LOC: LAB 10:50
PROVIDERS: Visit Provider Dermatology
DX: Z01.89 Encounter for other specified special examinations (principal)
CPT/HCPCS: 36415